=== PATIENT | female | born 2005 | race Two or more races ===

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

== ENCOUNTER 2025-01-26 08:53 | Outpatient (CLI) | payer BC, SELFPAY ==
--- NOTE | 2025-01-26 08:58 | ECHOD_ITS ---
Reason For Study Reason For Study: HX of ASD repair & PV stenosis Procedure This was a 2D Doppler, Color Flow transthoracic echocardiogram. Exam performed in department. Left Ventricle Normal LV size. The estimated ejection fraction is 60 %. No evidence for diastolic dysfunction. No regional wall motion abnormalities noted. Right Ventricle Normal RV size. Normal systolic function. Atria The left and right atria are normal. No doppler evidence for ASD. Mitral Valve There is no mitral valve stenosis. Trivial mitral valve insufficiency. Tricuspid Valve There is no tricuspid stenosis. No tricuspid valve insufficiency. Aortic Valve Trisinus/trileaflet aortic valve. There is no aortic stenosis. Trivial aortic valve insufficiency. Pulmonic Valve Mild stenosis of the pulmonic valve. Mild (1+) pulmonic valve insufficiency. Great Vessels Normal sized aortic root. Pericardium/Pleural No pericardial effusion. MMode/2D Measurements & Calculations LVIDd: 4.9 cm IVSd: 0.97 cm Ao root diam: 2.6 cm LVIDs: 3.5 cm LVPWd: 0.97 cm RVDd: 3.4 cm FS: 29.5 % LAV(MOD-bp): 58.1 ml LVAd ap4: 34.3 cm2 SV(MOD-sp4): 71.4 ml LAV(MOD-bp) Indexed: 24.3 ml/m2 LVLd ap4: 8.6 cm SI(MOD-sp4): 29.8 ml/m2 LAV(MOD-sp2): 58.0 ml EDV(MOD-sp4): 115.4 ml LAV(MOD-sp4): 50.8 ml EDV(sp4-el): 116.0 ml LVAs ap4: 18.3 cm2 LVLs ap4: 7.1 cm ESV(MOD-sp4): 44.1 ml ESV(sp4-el): 40.3 ml EF(MOD-sp4): 61.8 % EF(sp4-el): 65.2 % SV(sp4-el): 75.7 ml LA A4 area: 18.4 cm2 LA dimension(2D): 4.1 cm RA A4 area: 15.5 cm2 TAPSE: 1.8 cm Time Measurements MV dec time: 0.18 sec Doppler Measurements & Calculations MV E max marino: 89.0 cm/sec Lat Peak E' Marino: 18.8 cm/sec Med Peak E' Marino: 14.3 cm/sec MV A max marino: 40.1 cm/sec E/E' lat: 4.7 E/E' med: 6.2 MV E/A: 2.2 MV V2 max: 91.9 cm/sec MV P1/2t max marino: 90.2 cm/sec Ao V2 max: 129.4 cm/sec MV max P.4 mmHg MV P1/2t: 73.6 msec Ao max P.7 mmHg MV V2 mean: 42.4 cm/sec Ao V2 mean: 90.0 cm/sec MV mean P.89 mmHg MV dec slope: 358.9 cm/sec2 Ao mean P.6 mmHg MV V2 VTI: 20.9 cm MVA(P1/2t): 3.0 cm2 Ao V2 VTI: 26.3 cm AV (velocity ratio): 0.79 AI max marino: 437.4 cm/sec LV V1 max: 108.4 cm/sec PA V2 max: 203.2 cm/sec AI max P.5 mmHg LV V1 max P.7 mmHg PA V2 mean: 141.2 cm/sec LV V1 mean P.6 mmHg PA V2 VTI: 43.2 cm AI dec slope: 218.3 cm/sec2 LV V1 mean: 77.0 cm/sec AI P1/2t: 586.9 msec LV V1 VTI: 20.8 cm PI dec slope: 374.7 cm/sec2 ECHO/Echo Complete Interpretation Summary The estimated ejection fraction is 60 %. No evidence for diastolic dysfunction. Trivial mitral valve insufficiency. Trivial aortic valve insufficiency. Mild stenosis of the pulmonic valve. Mild (1+) pulmonic valve insufficiency. Ordering Physician: Karrie Carias Referring Physician: Karrie Carias Performed By: Magui Guillermo, MAGGIE, RVT
== END 2025-01-26 23:59 | disposition home or self-care (01) ==
PROVIDERS: PCP Family Medicine; Referring Provider Family Medicine; Visit Provider Family Medicine
DX: I37.0 Nonrheumatic pulmonary valve stenosis (principal); Z87.74 Personal history of (corrected) congenital malformations of heart and circulatory system
CPT/HCPCS: 93306

== ENCOUNTER → 2025-04-02 | Outpatient (CLI) | payer BC, SELFPAY | END | disposition home or self-care (01) | PROVIDERS: PCP Family Medicine; Referring Provider Internal Medicine Cardiovascular Disease; Visit Provider Internal Medicine Cardiovascular Disease | DX: R00.0 Tachycardia, unspecified (principal) | CPT/HCPCS: 93225; 93226 ==